=== PATIENT | female | born 1955 | race Hispanic/Latino ===

== ENCOUNTER 2021-09-22 16:56 | Emergency (ER) | payer MEDICARE ==
[~2021-09-22] VITALS: Ht 152.4 cm; Wt 74.8 kg
[2021-09-22 17:26] LABS: BASOPHILS % (AUTO) 0.2 % (0.0-5.0); EOSINOPHILS % (AUTO) 0.9 % (0.0-8.0); HEMATOCRIT 46.6 % (36-48); LYMPHOCYTES % (AUTO) 12.9 % (21.0-51.0); MEAN CORPUSCULAR HGB CONC 31.3 g/dL (32.0-36.0); MEAN CORPUSCULAR VOLUME 86.1 fL (79-99); MONOCYTES % (AUTO) 6.1 % (3.0-13.0); NEUTROPHILS % (AUTO) 79.6 % (40.0-77.0); PLATELET COUNT (AUTO) 245 K/uL (130-400); RED BLOOD CELL COUNT(AUTO) 5.41 MIL/uL (4.00-5.50); RED CELL DISTRIBUTION WIDTH 13.8 % (11.0-15.5); WHITE BLOOD COUNT (AUTO) 8.6 K/uL (4.8-10.8)
[2021-09-22 17:36] LABS: CREATININE 0.8 mg/dL (0.5-1.5); POTASSIUM 4.1 mmol/L (3.5-5.1)
[2021-09-22 17:40] LABS: ALBUMIN 3.9 g/dL (3.5-5.0); BILIRUBIN,TOTAL 0.5 mg/dL (0.2-1.0)
[2021-09-22 18:02] LABS: APPEARANCE,URINE Cloudy (CLEAR); BILIRUBIN,URINE Small (NEGATIVE); COLOR,URINE Dark Yellow (YELLOW); GLUCOSE, URINE (UA) Negative (NEGATIVE); KETONES,URINE 15 mg/dL (NEGATIVE); LEUKOCYTE ESTERASE ,URINE Negative (NEGATIVE); NITRATE,URINE Negative (NEGATIVE); OCCULT BLOOD,URINE Negative (NEGATIVE); PH,URINE 5.5 (5.0-8.0); PROTEIN,URINE POS 1+ mg/dL (NEGATIVE)
[2021-09-22] MEDS ORDERED: ONDANSETRON 4MG INJ IVP ONE (18:30)
[2021-09-22] MEDS ORDERED: DICYCLOMINE HCL 20 MG TAB PO SCH (18:30)
[2021-09-22] MEDS ORDERED: KETOROLAC 15MG/ML VIAL (15MG/ML) IV ONE (18:30)
[2021-09-22 18:45] LABS: BACTERIA,URINE Few /HPF (None Seen); RBC,URINE 0-1 /HPF (0-1); WBC,URINE 0-1 /HPF (0-1)
[2021-09-22 18:46] LABS: MUCUS,URINE Rare LPF (None Seen); SQUAMOUS EPITHELIAL CELL,UR Moderate /HPF (0-2); TRANSITIONAL EPI CELLS,URINE Rare /HPF (None Seen)
[2021-09-22 21:03] VITALS: BP 137/65
[2021-09-22] MEDS ORDERED: ONDA22I PO (21:11)
[2021-09-22] MEDS ORDERED: LOPE2CAP PO (21:12)
== END 2021-09-22 21:20 | disposition home or self-care (01) ==
LOC: EDH 16:56
DX: K52.9 Noninfective gastroenteritis and colitis, unspecified (principal); E03.9 Hypothyroidism, unspecified; E78.00 Pure hypercholesterolemia, unspecified
CPT/HCPCS: 36415; 80053; 81001; 83690; 85025; 96374; 96375; 99284; J1885; J2405

== ENCOUNTER → 2024-05-29 | Outpatient (CLI) | payer MEDICARE ==
[~2024-05-29] MED LIST: LOPE2CAP PO; ONDA22I PO
== END | disposition home or self-care (01) ==
LOC: RAH 14:30
PROVIDERS: ATTEND Internal Medicine
DX: Z12.31 Encounter for screening mammogram for malignant neoplasm of breast (principal)
CPT/HCPCS: 77067

== ENCOUNTER → 2024-08-27 | Outpatient (CLI) | payer OTHER ==
--- NOTE | 2024-08-27 10:18 | HMCIMG ---
US THYROID/NECK REASON: OTHER SPECIFIED DISORDERS OF THY COMPARISON: None TECHNIQUE: Routine thyroid sonogram was performed. FINDINGS: Right lobe is 1.6 x 0.5 x 0.6 cm. Parenchyma is homogeneous. There are no focal masses. There are no cysts. There is no adjacent lymphadenopathy. Left lobe of the thyroid is not identified and is presumed surgically absent. IMPRESSION: 1. Normal-appearing right lobe of the thyroid. 2. Left lobe is not identified and presumed surgically absent.
== END | disposition home or self-care (01) ==
LOC: RAH 08:40
PROVIDERS: ATTEND Internal Medicine
DX: E07.89 Other specified disorders of thyroid (principal); E03.9 Hypothyroidism, unspecified
CPT/HCPCS: 76536